=== PATIENT | male | born 1990 | race Caucasian/White ===

== ENCOUNTER 2025-01-15 14:43 | Emergency (ER) | payer BC, SELFPAY ==
[2025-01-15 14:48] VITALS: BP 146/93
[2025-01-15 15:44] LABS: % Immature Granulocytes 0.3 % (0-0.5); % Monocytes 4.8 % (1.7-9.3); % Neutrophils 63.9 % (42.2-75.2); Absolute Basophils 0.1 10^3/uL (0-0.2); Absolute Eosinophils 0.1 10^3/uL (0-0.7); Absolute Lymphocytes 1.8 10^3/uL (1.2-3.4); Absolute Monocytes 0.3 10^3/uL (0.1-0.6); Hemoglobin 15.9 g/dL (13.0-18.0); Mean Corp Hgb Conc. 36.1 g/dL (33.0-37.0); Mean Corpuscular Hgb 31.4 pg (27.0-31.0); Mean Platelet Volume 10.2 fL (7.4-10.4); Nucleated Red Blood Cells % 0 % (-); Platelet Count 181 10^3/uL (130-400); Red Blood Cell Count 5.06 10^6/uL (4.70-6.10); Red Cell Dist. Width 11.9 % (11.5-14.5); White Blood Cell Count 6.2 10^3/uL (4.8-10.8)
[2025-01-15 15:49] LABS: ALT (SGPT) 23 U/L (0-50); AST (SGOT) 22 U/L (17-59); Albumin 5.1 g/dl (3.5-5.0); Alkaline Phosphatase 56 U/L (38-126); Blood Urea Nitrogen 17 mg/dl (9-20); Carbon Dioxide 27 mmol/L (22-30); Glucose 99 mg/dl (70-99); Magnesium 2.4 mg/dl (1.6-2.3); Total Bilirubin 0.8 mg/dl (0.2-1.3); eGFR > 60.00
[2025-01-15 15:52] LABS: APTT 27.2 Sec (23.4-35.0)
[2025-01-15 15:55] LABS: Troponin I < 0.012 ng/ml
--- NOTE | 2025-01-15 15:55 | ED.GENMED ---
History of Present Illness
General
Chief Complaint: Fatigue
Source: patient and spouse
Exam Limitations: none
Time Seen by Provider: 01/15/25 15:51
History of Present Illness
History of Present Illness:
34yoM with no significant past medical history presenting for evaluation of fatigue. Patient had a work trip to [place] last week. He started to experience headaches while on the trip. Headaches seem to be positional and are worse if he leans
forward and better with laying flat. Headache has been constant for the past 5 days and is currently rated as a 5/10 in severity. He is also experiencing bilateral neck pain. He has been very fatigued over the past few days to the point where he
feels he could sleep at any time which is very unusual for him. He denies any fevers, body aches, chills, vomiting, visual changes, rashes, joint swelling, tick bites. No known sick contacts.
Past History
Past History
ED Past Medical History: None
ED Past Surgical History: None
Social History
Tobacco: Non-smoker
Alcohol: None
Drug: None
Living: with family
Employment: Employed
Family History
Family History: Other
Phy Exam
General Physical Exam
General Presentation: well appearing and no apparent distress
General Skin: warm and dry
General Habitus: normal
General Mental: alert
ENT Exam
ENT Exam: TM's normal, pharynx normal, neck supple, normocephalic and other (No meningismus )
Cardiovascular Exam
Cardiovascular Exam: regular rate/rhythm
Pulmonary Exam
Pulmonary Exam: lungs clear, no respiratory distress, no rales, no crackles, no rhonchi and no wheezing
Gastrointestinal Exam
Gastrointestinal Exam: non tender, soft and non distended
Neurological Exam
Neurological Exam: alert
[place] Coma Scale
Eye Opening: Spontaneous
Verbal Response: Oriented
Motor Response: Obeys Commands
GCS Total Score: 15
Skin Exam
Skin Exam: normal color and warm/dry
Psychiatric Exam
Psychiatric Exam: normal mood/affect
Course
Orders/Labs/Results
Orders:
Orders
01/15/25 14:51
Electrocardiogram (*1) Urgent
Reason for Study: Fatigue / Weakness
EKG- Treatment ONCE
01/15/25 15:10
Complete Blood Count/With Diff Urgent
Comprehensive Metabolic Panel Urgent
Magnesium Urgent
PTT Urgent
TSH Reflex To Free T4 Urgent
Troponin I Urgent
01/15/25 16:07
0.9% Sodium Chloride 1000 ml [Nss] 1,000 ml IV BOLUS
01/15/25 16:08
CT Head W/o Iv Contrast Urgent
Comment:
Reason For Exam: new onset headache
01/15/25 17:00
Lyme Progressive Urgent
Abnormal Lab Results
01/15/25
15:10
MCH 31.4 H pg
(27.0-31.0)
Chloride 110 H mmol/L
(98-107)
Magnesium 2.4 H mg/dl
(1.6-2.3)
Albumin 5.1 H g/dl
(3.5-5.0)
01/15/25 15:10
01/15/25 15:10
Vital Signs
Initial and Last Documented VS:
Initial Vital Signs
Temp Pulse Resp BP Pulse Ox
98.0 F 76 20 146/93 99
01/15/25 14:48 01/15/25 14:48 01/15/25 14:48 01/15/25 14:48 01/15/25 14:48
Last Documented Vital Signs
Temp Pulse Resp BP Pulse Ox
98.0 F 76 20 127/59 100
01/15/25 14:48 01/15/25 14:48 01/15/25 14:48 01/15/25 18:00 06/16/25 18:15
MDM/Problems Addressed
Differential Diagnosis Includes:
34yoM here with fatigue and headache/neck pain x 5 days. Recent trip to [place]. Denies fevers/URI symptoms. He is mildly hypertensive with otherwise stable vitals. He is well appearing in no distress. Exam is reassuring and no nuchal rigidity noted.
Differential diagnosis includes but is not limited to: viral illness, tick borne illness, thyroid dysfunction, anemia
Initial ED plan: Workup initiated in triage. Labs overall unremarkable including normal blood counts, glucose, renal function. EKG shows NSR without ischemic changes and troponin WNL. TSH pending. Will check Lyme testing and CT head. IV fluid bolus.
*Pulse Oximetry
Patient hypoxic: no (100%)
*EKG
Interpreted by ED Provider?: Yes
EKG Intrepretation Date: 01/15/25
Heart Rate: 63
Rate: normal
Rhythm: sinus
Broussard: normal axis
Interval: normal interval
QRS Pattern: normal QRS
Ischemia: no ischemia
*Critical Care Note
Total Time (30-74mins, 75-104mins- exclusive of procedures): Not Applicable
Update Note
Update Note:
TSH within normal limits. CT head negative for acute findings. Vitals remain stable throughout ED stay. No indication for hospitalization. Unclear etiology of symptoms. Advised f/u with PCP. Patient discharged in stable condition.
ED Attending Note
-
Portions of this chart may have been created with voice recognition software.� Occasional wrong word or��sound alike� substitutions may have occurred due to the inherent limitations of voice recognition software.
Discharge Plan
Departure
Patient Disposition: Home (Routine Discharge)
Date of Disposition: 01/15/25
Time of Disposition: 18:31
Patient with high blood pressure during this ER visit?: No
Discharge Problem:
Fatigue, Acute headache
Instructions: Fatigue (DC)
Prescriptions:
No Action
ibuprofen 600 MG tablet
600 mg PO Q6H Qty: 30 0RF
Referrals:
[facility] [Provider Group]
NONE,* [Family Provider, Internal Medicine]
Activity Restrictions/Additional Instructions:
Please call tomorrow to schedule a follow-up with a family doctor. Return to the ER with any new or worsening symptoms.
Interventions
Interventions:
*Risk Screen - Suicide Last Done: 01/15/25 18:41
*General Assessment Last Done: 01/15/25 14:48
*Neglect/Abuse Screening Last Done: 01/15/25 18:41
*ED- Fall Risk Assessment Last Done: 01/15/25 18:41
*ED COVID-19 Vaccine History Last Done: 01/15/25 18:41
*Nursing Disposition Last Done: 01/15/25 18:41
Discharge Date and Time
Discharge Date/Time: 01/15/25 18:43
Print Language: NAURUAN
[2025-01-15 16:27] LABS: TSH Reflex To Free T4 1.99 uIU/ml (0.47-4.68)
[2025-01-15 16:43] LABS: Chloride 110 mmol/L (98-107); Sodium 143 mmol/L (135-145)
[2025-01-15 16:55] VITALS: BMI 23.7
[2025-01-15] MEDS: NSS 1000 IV (16:56)
[2025-01-15 17:00] VITALS: BP 118/69
[2025-01-15 17:55] VITALS: BP 128/70
[2025-01-15 18:00] VITALS: BP 127/59
[2025-01-18 13:28] LABS: Lyme Antibody Screen, EIA Negative (Negative)
== END 2025-01-15 18:43 | disposition home or self-care (01) ==
LOC: EMR 14:43
PROVIDERS: Emergency Medicine; Physician Assistant; EMERGENCY PHYSICIAN Emergency Medicine
DX: R51.9 Headache, unspecified (principal); R53.83 Other fatigue; M54.2 Cervicalgia
CPT/HCPCS: 99284; 96360; 70450; 80053; 83735; 84443; 84484; 85025; 85730; 86618; 93005

== ENCOUNTER 2025-01-23 15:54 | Emergency (ER) | payer BC, SELFPAY ==
[2025-01-23 16:06] VITALS: BP 129/78
[2025-01-23 16:46] LABS: % Basophils 0.5 % (0-2); % Eosinophils 2.4 % (0-6); % Immature Granulocytes 0.2 % (0-0.5); % Lymphocytes 41.4 % (20.5-51.1); % Monocytes 5.5 % (1.7-9.3); Absolute Eosinophils 0.1 10^3/uL (0-0.7); Absolute Lymphocytes 2.3 10^3/uL (1.2-3.4); Absolute Monocytes 0.3 10^3/uL (0.1-0.6); Absolute Neutrophils 2.7 10^3/uL (1.4-6.5); Hematocrit 43.1 % (39.0-52.0); Mean Corp Hgb Conc. 34.8 g/dL (33.0-37.0); Mean Corpuscular Hgb 30.9 pg (27.0-31.0); Mean Corpuscular Volume 88.7 fL (80.0-94.0); Mean Platelet Volume 10.2 fL (7.4-10.4); Nucleated Red Blood Cells % 0 % (-); Platelet Count 192 10^3/uL (130-400); Red Blood Cell Count 4.86 10^6/uL (4.70-6.10); Red Cell Dist. Width 11.9 % (11.5-14.5); White Blood Cell Count 5.5 10^3/uL (4.8-10.8)
[2025-01-23 16:49] LABS: ALT (SGPT) 22 U/L (0-50); AST (SGOT) 20 U/L (17-59); Albumin 4.9 g/dl (3.5-5.0); Alkaline Phosphatase 50 U/L (38-126); Blood Urea Nitrogen 20 mg/dl (9-20); Calcium 9.7 mg/dl (8.4-10.2); Carbon Dioxide 27 mmol/L (22-30); Chloride 107 mmol/L (98-107); Glucose 106 mg/dl (70-99); Potassium 4.4 mmol/L (3.5-5.1); Sodium 143 mmol/L (135-145); Total Bilirubin 0.5 mg/dl (0.2-1.3); Total Protein 7.6 g/dl (6.3-8.2); eGFR > 60.00
--- NOTE | 2025-01-23 17:53 | ED.GENMED ---
History of Present Illness
General
Chief Complaint: Headache
Source: patient
Time Seen by Provider: 01/23/25 17:42
History of Present Illness
History of Present Illness:
The patient is a 34-year-old male presenting with a two-week history of headaches. Symptoms began after a flight from [place] to [place], characterized initially by a small headache and worsened upon leaning forward with a lot of pressure in the
front of the head. During a subsequent trip to [place], the patient experienced a severe midday headache with associated neck pain and significant fatigue. These episodes are described as extremely debilitating, causing the patient to want to sleep
during the day. Relief is noted with lying down. The headaches are notably related to sitting and staring at a computer screen, but not merely sitting, as eating at a table does not provoke symptoms. It worsens with actions like bending over and
sneezing. The patient reports a stable headache location at the 'front middle' of the head with increased pressure upon leaning forward but denies any nausea, visual disturbances, or difficulty walking. Previous eye examination was normal.
Outpatient testing had been considered but the patients condition had improved temporarily until todays exacerbation. The patient is currently experiencing a headache. There is a history of clear CT imaging from a recent ER visit. There are no
current medications except daily loratadine (Claritin) and previously ineffective ibuprofen (Advil) use. No past surgeries reported. The patient denies tobacco use, uses alcohol occasionally, and has no recreational drug use.
Past History
Past History
ED Past Medical History: None
ED Past Surgical History: None
Social History
Tobacco: Non-smoker
Alcohol: None
Drug: None
Living: with family
Employment: Employed
Family History
Family History: Other
Phy Exam
Physical Exam
Physical Exam:
General: Awake, Alert, Oriented X3. No acute distress.
Vitals: unremarkable
Head: Atraumatic
Eyes: Pupils equal, EOMI
Throat: Airway intact, no exudates
Neck: Trachea midline
Lungs: Clear and equal b/l
Heart: Regular rate, no murmurs
Abd: Soft, Nontender, No pulsatile mass
Neuro: Cranial nerves intact, muscle strength equal bilaterally, cerebellar exam normal
Skin: Warm, dry, no rash
Lymphatics: No lymphadenopathy noted in the neck, axilla, clavicular region
Extremities: pulses equal b/l, no edema
Course
Orders/Labs/Results
Orders:
Orders
01/23/25 16:27
Complete Blood Count/With Diff Urgent
Comprehensive Metabolic Panel Urgent
01/23/25 17:51
CT Head & Neck Angio W/wo IV Urgent
Comment:
Reason For Exam: severe headache and neck pain
01/23/25 17:52
0.9% Sodium Chloride 1000 ml [Nss] 1,000 ml IV BOLUS
Diphenhydramine [Benadryl] 25 mg IV NOW STA
Ketorolac [Toradol] 15 mg IV NOW STA
Metoclopramide [Reglan] 10 mg IV NOW STA
Abnormal Lab Results
01/23/25
16:27
Glucose 106 H mg/dl
(70-99)
01/23/25 16:27
01/23/25 16:27
Vital Signs
Initial and Last Documented VS:
Initial Vital Signs
Temp Pulse Resp BP Pulse Ox
98.6 F 69 18 129/78 94
01/23/25 16:06 01/23/25 16:06 01/23/25 16:06 01/23/25 16:06 01/23/25 16:06
Last Documented Vital Signs
Temp Pulse Resp BP Pulse Ox
98.6 F 73 18 129/78 95
01/23/25 16:06 01/23/25 16:06 01/23/25 16:06 01/23/25 16:06 01/23/25 17:56
MDM/Problems Addressed
Differential Diagnosis Includes:
The Differential Diagnosis includes, in no particular order and is not limited to:
- Migraine headache
- Tension-type headache
- Cervicogenic headache
- Sinus headache
- Cluster headache
- Occipital neuralgia
- Vertebrobasilar insufficiency
- Subarachnoid hemorrhage (unlikely given clear CT)
- Carotid artery dissection
- Intracranial mass or lesion (unlikely given clear CT)
MDM/Problems Addressed:
CT angiograms normal. Patient feels better after Reglan and Benadryl. Unclear what the source of his headache is but there does not appear to be any unstable process. Perhaps the patient would benefit from an outpatient MRI so is not something we
can get here. Patient has appointment with ophthalmology, Dr. Millard tomorrow which I think is a great idea.
*Radiology
Radiology exam reviewed: radiology read reviewed
*Pulse Oximetry
SaO2: 95
Oxygen Mode of Delivery: Room air
Patient hypoxic: no
*Critical Care Note
Total Time (30-74mins, 75-104mins- exclusive of procedures): Not Applicable
ED Attending Note
-
Portions of this chart may have been created with voice recognition software.� Occasional wrong word or��sound alike� substitutions may have occurred due to the inherent limitations of voice recognition software.
Discharge Plan
Departure
Patient Disposition: Home (Routine Discharge)
Date of Disposition: 01/23/25
Time of Disposition: 20:16
Patient with high blood pressure during this ER visit?: No
Condition: Good
Discharge Problem:
Migraine
Instructions: Migraines (DC)
Prescriptions:
No Action
ibuprofen 600 MG tablet
600 mg PO Q6H Qty: 30 0RF
Referrals:
David Gaffney MD [Family Provider, [facility]]
Interventions
Interventions:
*Risk Screen - Suicide Last Done: 01/23/25 20:45
*General Assessment Last Done: 01/23/25 20:45
*Neglect/Abuse Screening Last Done: 01/23/25 20:45
*ED COVID-19 Vaccine History Last Done: 01/23/25 16:06
*Nursing Disposition Last Done: 01/23/25 20:45
ED- Neurological Assessment Last Done: 01/23/25 20:45
Discharge Date and Time
Discharge Date/Time: 01/23/25 20:45
Print Language: ERITREAN
[2025-01-23] MEDS: TORADOL 15 MG IV (18:16)
[2025-01-23] MEDS: NSS 1000 IV (18:16)
[2025-01-23] MEDS: REGLAN 10 MG IV (18:17)
[2025-01-23] MEDS: BENADRYL 25 MG IV (18:18)
== END 2025-01-23 20:45 | disposition home or self-care (01) ==
LOC: EMR 15:54
PROVIDERS: Student in an Organized Health Care Education/Training Program; EMERGENCY PHYSICIAN Emergency Medicine; FAMILY PHYSICIAN Family Medicine
DX: G43.909 Migraine, unspecified, not intractable, without status migrainosus (principal); M54.2 Cervicalgia
CPT/HCPCS: 99284; 96361; 96374; 96375 ×2; 70496; 70498; 80053; 85025; Q9967